=== PATIENT | female | born 1970 | race Caucasian/White ===

== ENCOUNTER → 2016-11-13 | Outpatient (CLI) | payer OTHER ==
[~2016-11-13] MED LIST: ACET500C PO; ANUS2.5C2 EXT; DOCU10ELUD FT; IBUP80TA FT; IBUP80TA PO; MOM30SS FT; PERCOCET PO; PRENTAB8 PO
[2016-11-13 17:56] LABS: BASO % 0.5 % (0.0-1.0); EOS # 0.1 K/mm3 (0.0-0.50); LARGE UNSTAINED CELL # 0.1 K/mm3 (0.0-0.4); LARGE UNSTAINED CELL % 1.5 % (0.0-4.0); MEAN CORPUSCULAR HGB CONC 33.5 g/dl (32.0-36.5); MEAN CORPUSCULAR VOLUME 92.7 fl (80.0-96.0); MONO # 0.4 K/mm3 (0.0-0.8); MONO % 4.7 % (0.0-5.0); NEUTROPHILS # 6.6 K/mm3 (1.8-7.7); NEUTROPHILS % 71.3 % (36.0-66.0); PLATELET COUNT, AUTOMATED 208 k/mm3 (150-450); WHITE BLOOD COUNT 9.3 K/mm3 (4.0-10.0)
[2016-11-15 12:53] LABS: HBsAg Prenatal NEGATIVE (NEGATIVE)
== END ==
LOC: M LAB 15:14
PROVIDERS: ATTEND Specialist
DX: Z34.81 Encounter for supervision of other normal pregnancy, first trimester (principal)

== ENCOUNTER 2016-12-05 10:47 | Emergency (ER) | payer OTHER ==
[~2016-12-05] VITALS: Ht 160 cm; Wt 67.3 kg
[2016-12-05] MEDS ORDERED: NS 1,000 ML IV ONE (11:45)
[2016-12-05 12:12] LABS: BASO % 0.3 % (0.0-1.0); EOS # 0.2 K/mm3 (0.0-0.50); LARGE UNSTAINED CELL # 0.1 K/mm3 (0.0-0.4); LARGE UNSTAINED CELL % 0.6 % (0.0-4.0); LYMPH # 1.8 K/mm3 (1.5-4.5); LYMPH % 11.7 % (24.0-44.0); MEAN CORPUSCULAR HEMOGLOBIN 31.8 pg (27.0-33.0); MEAN CORPUSCULAR HGB CONC 34.8 g/dl (32.0-36.5); MEAN CORPUSCULAR VOLUME 91.4 fl (80.0-96.0); MONO # 0.5 K/mm3 (0.0-0.8); MONO % 2.9 % (0.0-5.0); NEUTROPHILS % 83.4 % (36.0-66.0); PLATELET COUNT, AUTOMATED 224 k/mm3 (150-450); RED CELL DISTRIBUTION WIDTH 12.7 % (11.5-14.5); WHITE BLOOD COUNT 15.6 K/mm3 (4.0-10.0)
[2016-12-05 12:51] LABS: ALBUMIN 4.2 GM/DL (3.2-5.2); ALBUMIN/GLOBULIN RATIO 1.27 (1.00-1.93); ALKALINE PHOSPHATASE 34 U/L (45-117); ALT/SGPT 29 U/L (12-78); ANION GAP 5 MEQ/L (8-16); AST/SGOT 16 U/L (15-37); BILIRUBIN,DIRECT 0.1 MG/DL (0.0-0.2); BILIRUBIN,TOTAL 0.5 MG/DL (0.2-1.0); BLOOD UREA NITROGEN 9 MG/DL (7-18); CALCIUM LEVEL 9.2 MG/DL (8.5-10.1); CARBON DIOXIDE LEVEL 28 MEQ/L (21-32); CHLORIDE LEVEL 106 MEQ/L (98-107); CREATININE FOR GFR 0.65 MG/DL (0.55-1.02); GLOMERULAR FILTRATION RATE > 60.0 (>58); GLUCOSE, FASTING 88 MG/DL (70-105); POTASSIUM SERUM 3.8 MEQ/L (3.5-5.1); SODIUM LEVEL 139 MEQ/L (136-145); TOTAL PROTEIN 7.5 GM/DL (6.4-8.2)
--- NOTE | 2016-12-05 14:11 | REP ---
FIRST TRIMESTER ULTRASOUND: Real-time sonographic evaluation of the pelvis performed utilizing transabdominal and endovaginal technique. Uterus measures 10.4 x 4.8 x 6.1 cm. Oval irregularly shaped sac-like structure in the endometrial canal measures 4.2 x 1.3 x 1.7 cm with a mean diameter of 24 mm. This would correspond to an estimated gestational age of 7 weeks. There is internal debris, but no well defined yolk sac or pole is seen. Findings probably represent a nonviable , but I cannot exclude ectopic . Suggest correlation the serial quantitaive beta hCG values. Ovaries are normal in size and echotexture, right ovary measuring 2.9 x 2.0 x 2.6 cm and left ovary 2.3 x 1.3 x 2.8 cm. There is no adnexal mass free fluid. Blood flow is seen in each ovary with duplex Doppler evaluation, with no torsion, RI right ovary is 0.63, and left ovary 0.68. Signed by Wan Coyne MD 12/05/2016 05:42 P
[2016-12-05 15:06] VITALS: BP 114/57
== END 2016-12-05 15:08 | disposition home or self-care (01) ==
LOC: M ED 10:47
DX: O20.8 Other hemorrhage in early pregnancy (principal); O34.219 Maternal care for unspecified type scar from previous cesarean delivery; Z87.59 Personal history of other complications of pregnancy, childbirth and the puerperium; O99.331 Smoking (tobacco) complicating pregnancy, first trimester; Z3A.01 Less than 8 weeks gestation of pregnancy

== ENCOUNTER → 2016-12-07 | Outpatient (CLI) | payer OTHER | LOC: M LAB 14:33 | PROVIDERS: ATTEND Advanced Practice Midwife | DX: O20.0 Threatened abortion (principal) ==

== ENCOUNTER → 2017-03-29 | Outpatient (REF) | payer OTHER ==
[2017-03-29 21:43] LABS: CONTROL LINE UCG INT CTR LINE PRESENT; URINE PREG TEST NEGATIVE (NEGATIVE)
== END ==
LOC: M LAB REF 21:27
DX: N91.2 Amenorrhea, unspecified (principal)
CPT/HCPCS: 84703

== ENCOUNTER → 2017-09-24 | Outpatient (CLI) | payer OTHER | LOC: M WUC 14:26 | DX: M54.5 Low back pain (principal) | CPT/HCPCS: 72110 ==

== ENCOUNTER → 2017-10-31 | Outpatient (CLI) | payer OTHER | LOC: M RAD 10:50 | DX: R92.8 Other abnormal and inconclusive findings on diagnostic imaging of breast (principal); Z53.8 Procedure and treatment not carried out for other reasons ==

== ENCOUNTER → 2017-10-31 | Outpatient (CLI) | payer OTHER ==
[2017-10-31 17:27] LABS: HCG, SERUM QUANTITATIVE < 1.0 MIU/ML
== END ==
LOC: M SMT 14:30
DX: N92.6 Irregular menstruation, unspecified (principal)
CPT/HCPCS: 84702

== ENCOUNTER → 2018-01-04 | Outpatient (REF) | payer OTHER ==
[2018-01-04 21:18] LABS: CONTROL LINE UCG INT CTR LINE PRESENT; URINE PREG TEST NEGATIVE (NEGATIVE)
== END ==
LOC: M LAB REF 21:04
DX: N91.2 Amenorrhea, unspecified (principal)

== ENCOUNTER → 2018-01-24 | Outpatient (REF) | payer OTHER ==
[2018-01-24 22:01] LABS: CONTROL LINE UCG INT CTR LINE PRESENT; URINE PREG TEST NEGATIVE (NEGATIVE)
== END ==
LOC: M LAB REF 10:50
DX: Z34.81 Encounter for supervision of other normal pregnancy, first trimester (principal)

== ENCOUNTER → 2018-02-02 | Outpatient (REF) | payer OTHER ==
[2018-02-10 10:16] LABS: HPV LOW VOL RFLX Negative (Negative)
== END ==
LOC: M LAB REF 13:33
DX: Z01.419 Encounter for gynecological examination (general) (routine) without abnormal findings (principal); Z11.51 Encounter for screening for human papillomavirus (HPV); R87.611 Atypical squamous cells cannot exclude high grade squamous intraepithelial lesion on cytologic smear of cervix (ASC-H)
CPT/HCPCS: 88142

== ENCOUNTER → 2018-02-06 | Outpatient (REF) | payer OTHER ==
[2018-02-06 07:15] LABS: HCG, SERUM QUANTITATIVE < 1.0 MIU/ML
== END ==
LOC: M LAB 06:25
DX: N91.2 Amenorrhea, unspecified (principal)

== ENCOUNTER → 2018-02-09 | Outpatient (CLI) | payer OTHER | LOC: M RAD 17:36 | DX: R92.2 Inconclusive mammogram (principal); R92.0 Mammographic microcalcification found on diagnostic imaging of breast | CPT/HCPCS: 77067 ==

== ENCOUNTER → 2018-03-27 | Outpatient (CLI) | payer OTHER ==
--- NOTE | 2018-03-27 16:47 | REP ---
Digital diagnostic bilateral mammography with CAD: History: Screening mammography from February 09, 2018 was BIRADS zero because of groupings of microcalcifications seen in each breast. Diagnostic imaging was recommended. Mammographic findings: Magnified focal spot compression CC, MLO, and true MLO views of each breast are obtained. These confirm the presence of a grouping of polymorphic microcalcifications in each breast. On the right, the grouping is superiorly and just medial to the plane of the nipple at approximately the 1 o'clock position. There is a second grouping of similar but less pronounced of punctate calcifications superiorly and medially. On the left, the micro calcific grouping is medial and inferior at approximately the 8 o'clock position. Findings must be considered suspicious. Impression: BIRADS category four suspicious bilateral breast imaging. Bilateral stereotactic needle biopsy is recommended for the larger cluster on the right and the cluster of microcalcifications on the left. BI-RADS/ACR category 4 mammogram. Suspicious abnormality - biopsy should be considered. Usually requires biopsy. This mammogram was interpreted with the aid of an FDA-approved computer-aided detection system. The patient states she had a clinical breast exam in January 2018. The patient letter being requested is m4 . Electronically Signed by Phani Olmstead MD 03/27/2018 06:57 P
== END ==
LOC: M RAD 14:57
PROVIDERS: ATTEND Advanced Practice Midwife
DX: R92.0 Mammographic microcalcification found on diagnostic imaging of breast (principal)

== ENCOUNTER → 2018-06-26 | Outpatient (CLI) | payer OTHER ==
[~2018-06-26] MED LIST changes: -DOCU10ELUD FT; +DOCU5LIQ FT
[2018-06-30 00:06] LABS: TISSUE TRANSGLUTAMINASE IgA <2 U/mL (0-3)
[2018-06-30 08:25] LABS: ZINC PLASMA 83 ug/dL (56-134)
== END ==
LOC: M LAB 17:01
PROVIDERS: ATTEND Family Medicine
DX: R74.8 Abnormal levels of other serum enzymes (principal)

== ENCOUNTER 2018-09-24 13:19 | Emergency (ER) | payer OTHER ==
[~2018-09-24] VITALS: Ht 160 cm; Wt 60.6 kg
[2018-09-24] MEDS ORDERED: PRENTAB7 (13:27)
[2018-09-24] MEDS ORDERED: [UNRECOGNIZED DRUG - OTHER] (13:27)
[2018-09-24] MEDS ORDERED: RABIES VACCINE HUMAN 2.5 INTERNATIONAL UNITS/ML VIAL (90675) IM ONE (14:00)
[2018-09-24] MEDS ORDERED: RABIES IMMUNE GLOBULIN 1500 INTERNATIONAL UNIT/5ML VIAL (90375) IM ONE (14:00)
[2018-09-24 15:44] VITALS: BP 97/51
== END 2018-09-24 15:45 | disposition home or self-care (01) ==
LOC: M ED 13:19
DX: Z20.3 Contact with and (suspected) exposure to rabies (principal); Z23 Encounter for immunization

== ENCOUNTER 2018-09-27 13:46 | Emergency (ER) | payer OTHER ==
[~2018-09-27] VITALS: Ht 160 cm; Wt 60.0 kg
[~2018-09-27 13:46] MED LIST changes: +PRENTAB7; +[UNRECOGNIZED DRUG - OTHER]
[2018-09-27 13:47] VITALS: BP 121/58
[2018-09-27] MEDS ORDERED: RABIES VACCINE HUMAN 2.5 INTERNATIONAL UNITS/ML VIAL (90675) IM ONE (14:15)
== END 2018-09-27 14:47 | disposition home or self-care (01) ==
LOC: M ED 13:46
DX: Z20.3 Contact with and (suspected) exposure to rabies (principal); Z23 Encounter for immunization

== ENCOUNTER 2018-10-01 13:27 | Emergency (ER) | payer OTHER ==
[~2018-10-01] VITALS: Ht 160 cm; Wt 60.9 kg
[2018-10-01 13:27] VITALS: BP 116/61
[2018-10-01] MEDS ORDERED: RABIES VACCINE HUMAN 2.5 INTERNATIONAL UNITS/ML VIAL (90675) IM ONE (13:45)
== END 2018-10-01 14:20 | disposition home or self-care (01) ==
LOC: M ED 13:27
DX: Z23 Encounter for immunization (principal); Z20.3 Contact with and (suspected) exposure to rabies

== ENCOUNTER 2018-10-08 14:13 | Emergency (ER) | payer OTHER ==
[~2018-10-08] VITALS: Ht 160 cm; Wt 61.8 kg
[2018-10-08 14:14] VITALS: BP 126/59
[2018-10-08] MEDS ORDERED: PRENTAB7 (14:32)
[2018-10-08] MEDS ORDERED: RABIES VACCINE HUMAN 2.5 INTERNATIONAL UNITS/ML VIAL (90675) IM ONE (15:00)
== END 2018-10-08 15:10 | disposition home or self-care (01) ==
LOC: M ED 14:13
DX: Z20.3 Contact with and (suspected) exposure to rabies (principal); Z23 Encounter for immunization

== ENCOUNTER → 2019-02-01 | Outpatient (REF) | payer OTHER ==
[2019-02-03 14:07] LABS: HPV HYBRID CAPTURE II Negative (Negative)
== END ==
LOC: M LAB REF 17:22
PROVIDERS: ATTEND Advanced Practice Midwife
DX: Z12.4 Encounter for screening for malignant neoplasm of cervix (principal)

== ENCOUNTER → 2019-03-18 | Outpatient (CLI) | payer OTHER ==
--- NOTE | 2019-03-18 09:14 | REPMRS ---
Patient History The patient states she had a clinical breast exam in January 2019. Family history of prostate cancer in paternal grandfather, unknown cancer in maternal grandfather. Benign radio exam breast specimen of the left breast, May 21, 2018. Benign radio exam breast specimen of the right breast, May 21, 2018. Benign stereotatic loc for ea lesion of the left breast, May 21, 2018. Benign stereotatic loc for ea lesion of the right breast, May 21, 2018. Digital Mammo Screening Bilat: March 18, 2019 - Exam #: [id number] Bilateral CC and MLO view(s) were taken. Technologist: Laura Gutierrez, Technologist Prior study comparison: March 27, 2018, digital mammo diagnostic bilateral performed at [facility]. February 09, 2018, bilateral digital mammo screening bilat performed at [facility]. FINDINGS: There are scattered fibroglandular densities. There is a needle biopsy marker clip again noted in each breast, one on each side. Previously noted small hematoma in the right breast is no longer apparent. The previously noted calcifications have decreased post biopsy in the right breast. There has been no change in the appearance of the mammogram from the prior studies. There is a mild amount of scattered fibroglandular density which is fairly symmetric. There is no interval development of dominant mass, architectural distortion, or grouped microcalcification suggestive of malignancy. 3-D tomosynthesis shows no additional findings. Assessment: BI-RADS/ACR category 1 mammogram. Negative Mammogram. Recommendation Routine screening mammogram of both breasts in 1 year (for women over age 40). This patient's Lifetime Breast Cancer Risk is estimated at 12.7 %. This mammogram was interpreted with the aid of an FDA-approved computer-aided dectection system. Electronically Signed By: Milton Olmstead MD 03/18/19 0913
== END ==
LOC: M RAD 07:56
PROVIDERS: ATTEND Advanced Practice Midwife
DX: Z12.31 Encounter for screening mammogram for malignant neoplasm of breast (principal)

== ENCOUNTER → 2019-11-03 | Outpatient (REF) | payer OTHER, MEDICAID ==
[~2019-11-03] MED LIST changes: +FLUO20CA22; +MULTCAP PO; +OMEP40CA97 PO; +SUCR1TA PO
[2019-11-03 14:22] LABS: HEMATOCRIT 44.6 % (36.0-47.0); MEAN CORPUSCULAR HGB CONC 31.4 g/dl (32.0-36.5); MEAN CORPUSCULAR VOLUME 95.5 fl (80.0-96.0); PLATELET COUNT, AUTOMATED 251 10^3/uL (150-450); RED BLOOD COUNT 4.67 10^6/uL (4.00-5.40); WHITE BLOOD COUNT 9.4 10^3/uL (4.0-10.0)
[2019-11-03 14:57] LABS: BLOOD UREA NITROGEN 12 MG/DL (7-18); CALCIUM LEVEL 9.7 MG/DL (8.5-10.1); CARBON DIOXIDE LEVEL 28 MEQ/L (21-32); CHLORIDE LEVEL 102 MEQ/L (98-107); CREATININE FOR GFR 0.66 MG/DL (0.55-1.30); FOLLICLE STIMULATING HORMONE 9.8 mIU/mL; GLOMERULAR FILTRATION RATE > 60.0 (>58); GLUCOSE, FASTING 89 MG/DL (70-100); LUTEINIZING HORMONE 25.9 mIU/mL; SODIUM LEVEL 137 MEQ/L (136-145)
== END ==
LOC: M LAB REF 12:24 → M SMT 12:24
PROVIDERS: ATTEND Specialist
DX: N92.6 Irregular menstruation, unspecified (principal)

== ENCOUNTER 2019-11-22 14:56 | Emergency (ER) | payer MEDICAID, OTHER ==
[~2019-11-22] VITALS: Ht 160 cm; Wt 70.1 kg
[~2019-11-22 14:56] MED LIST changes: -FLUO20CA22; -MULTCAP PO; -OMEP40CA97 PO; -SUCR1TA PO
[2019-11-22] MEDS ORDERED: MULTCAP PO (15:09)
[2019-11-22] MEDS ORDERED: FLUO20CA22 (15:09)
[2019-11-22 15:36] LABS: BASO % 0.5 % (0.0-1.0); EOS # 0.2 10^3/uL (0.0-0.5); EOS % 1.9 % (0.0-3.0); HEMATOCRIT 39.1 % (36.0-47.0); HEMOGLOBIN 12.6 g/dl (12.0-15.5); LYMPH # 2.1 10^3/uL (1.5-5.0); LYMPH % 26.9 % (24.0-44.0); MEAN CORPUSCULAR HGB CONC 32.2 g/dl (32.0-36.5); MEAN CORPUSCULAR VOLUME 93.1 fl (80.0-96.0); MONO # 0.6 10^3/uL (0.0-0.8); NEUTROPHILS % 63.6 % (36.0-66.0); PLATELET COUNT, AUTOMATED 200 10^3/uL (150-450); WHITE BLOOD COUNT 7.8 10^3/uL (4.0-10.0)
[2019-11-22 15:46] LABS: INR 1.05; PROTHROMBIN TIME 13.9 SECONDS (11.8-14.0)
[2019-11-22 15:47] LABS: PARTIAL THROMBOPLASTIN TIME 25.8 SECONDS (25.0-38.4)
[2019-11-22 16:03] LABS: ALBUMIN 3.7 GM/DL (3.2-5.2); ALT/SGPT 33 U/L (12-78); BILIRUBIN,DIRECT 0.1 MG/DL (0.0-0.2); BILIRUBIN,TOTAL 0.4 MG/DL (0.2-1.0); BLOOD UREA NITROGEN 12 MG/DL (7-18); CALCIUM LEVEL 8.9 MG/DL (8.5-10.1); CARBON DIOXIDE LEVEL 26 MEQ/L (21-32); CHLORIDE LEVEL 109 MEQ/L (98-107); CK-MB VALUE MASS 2.7 NG/ML (<3.6); CPK CREATINE PHOSPHOKINASE 149 U/L (26-192); CREATININE FOR GFR 0.75 MG/DL (0.55-1.30); D-DIMER QUANT 363.43 ng/ml (<500); FREE T4 0.76 NG/DL (0.76-1.46); GLOMERULAR FILTRATION RATE > 60.0 (>58); GLUCOSE, FASTING 99 MG/DL (70-100); LIPASE 72 U/L (73-393); MB/CK RELATIVE INDEX 1.81 (< OR =4); POTASSIUM SERUM 3.6 MEQ/L (3.5-5.1); SODIUM LEVEL 141 MEQ/L (136-145); TOTAL PROTEIN 6.8 GM/DL (6.4-8.2); TROPONIN I < 0.02 NG/ML (< 0.10)
[2019-11-22 16:06] LABS: HCG, SERUM QUALITATIVE NEGATIVE (NEGATIVE)
[2019-11-22] MEDS ORDERED: OMEP40CA97 PO (16:49)
[2019-11-22] MEDS ORDERED: SUCR1TA PO (16:49)
[2019-11-22] MEDS ORDERED: SUCRALFATE 1 GM TAB PO ONE (17:00)
[2019-11-22 17:35] VITALS: BP 144/89
--- NOTE | 2019-11-29 10:48 | ECGEPIP ---
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
--- NOTE | 2019-12-01 11:35 | REP ---
PORTABLE CHEST X-RAY CLINICAL: Chest pain. FINDINGS: Mediastinal and cardiac silhouette normal. Lung ortiz clear. No acute consolidation, effusion, or pneumothorax. Skeletal structures are intact. IMPRESSION: Normal portable chest x-ray. No acute cardiopulmonary process or focal consolidation. MTDD
== END 2019-11-22 17:35 | disposition home or self-care (01) ==
LOC: M ED 14:56
DX: K21.9 Gastro-esophageal reflux disease without esophagitis (principal); F17.200 Nicotine dependence, unspecified, uncomplicated; Z79.899 Other long term (current) drug therapy

== ENCOUNTER → 2019-12-23 | Outpatient (REF) | payer OTHER, MEDICAID ==
[~2019-12-23] MED LIST changes: +FLUO20CA22; +MULTCAP PO; +OMEP40CA97 PO; +SUCR1TA PO
[2019-12-23 16:39] LABS: APPEARANCE, URINE HAZY (CLEAR); BACTERIA, URINE AUTO NEGATIVE (NEGATIVE); BILIRUBIN, URINE AUTO NEGATIVE (NEGATIVE); BLOOD, URINE BLOOD NEGATIVE (NEGATIVE); COLOR, URINE YELLOW (YELLOW); GLUCOSE, URINE (UA) AUTO NEGATIVE (NEGATIVE); KETONE, URINE AUTO NEGATIVE (NEGATIVE); LEUKOCYTE ESTERASE, URINE AUTO NEGATIVE (NEGATIVE); MUCUS, URINE SMALL (NEGATIVE); NITRITE, URINE AUTO NEGATIVE (NEGATIVE); PROTEIN, URINE AUTO NEGATIVE (NEGATIVE); RBC, URINE AUTO 0 /HPF (0-3); SPECIFIC GRAVITY URINE AUTO 1.004 (1.002-1.035); SQUAMOUS EPITHELIAL CELL UR AU 1 /HPF (0-6); UROBILINOGEN, URINE AUTO 0.2 mg/dL (0.0-2.0); WBC, URINE AUTO 0 /HPF (0-3)
== END ==
LOC: M LAB REF 16:12
PROVIDERS: ATTEND Physician Assistant
DX: N39.0 Urinary tract infection, site not specified (principal)

== ENCOUNTER → 2020-03-03 | Outpatient (REF) | payer OTHER, MEDICAID ==
[2020-03-03 19:57] LABS: APPEARANCE, URINE CLEAR (CLEAR); BACTERIA, URINE AUTO NEGATIVE (NEGATIVE); BILIRUBIN, URINE AUTO NEGATIVE (NEGATIVE); BLOOD, URINE BLOOD 1+ (NEGATIVE); COLOR, URINE YELLOW (YELLOW); GLUCOSE, URINE (UA) AUTO NEGATIVE (NEGATIVE); KETONE, URINE AUTO NEGATIVE (NEGATIVE); LEUKOCYTE ESTERASE, URINE AUTO NEGATIVE (NEGATIVE); NITRITE, URINE AUTO NEGATIVE (NEGATIVE); PROTEIN, URINE AUTO NEGATIVE (NEGATIVE); RBC, URINE AUTO 2 /HPF (0-3); SQUAMOUS EPITHELIAL CELL UR AU 0 /HPF (0-6); UROBILINOGEN, URINE AUTO 0.2 mg/dL (0.0-2.0); WBC, URINE AUTO 1 /HPF (0-3)
== END ==
LOC: M LAB REF 19:21
PROVIDERS: ATTEND Physician Assistant Medical
DX: N39.0 Urinary tract infection, site not specified (principal)

== ENCOUNTER 2020-03-14 17:41 | Emergency (ER) | payer MEDICAID, OTHER ==
[~2020-03-14] VITALS: Ht 160 cm; Wt 75.6 kg
[2020-03-14 17:45] VITALS: BP 102/57
[2020-03-14 19:48] VITALS: O2SAT 98
== END 2020-03-14 19:52 | disposition home or self-care (01) ==
LOC: M ED 17:41
DX: Z20.828 Contact with and (suspected) exposure to other viral communicable diseases (principal); R19.7 Diarrhea, unspecified
CPT/HCPCS: 99284; U0003

== ENCOUNTER 2020-03-21 18:11 | Emergency (ER) | payer MEDICAID, OTHER ==
[~2020-03-21] VITALS: Ht 157.5 cm; Wt 165.0 kg
[2020-03-21 20:46] VITALS: BP 129/69
[2020-03-21] MEDS ORDERED: DICYCLOMINE 10 MG CAP PO ONE (22:30)
[2020-03-21 22:54] LABS: BASO # 0.1 10^3/uL (0.0-0.2); BASO % 0.7 % (0.0-1.0); EOS # 0.1 10^3/uL (0.0-0.5); EOS % 1.3 % (0.0-3.0); HEMOGLOBIN 13.5 g/dl (12.0-15.5); LYMPH # 2.3 10^3/uL (1.5-5.0); LYMPH % 28.3 % (24.0-44.0); MEAN CORPUSCULAR HEMOGLOBIN 29.1 pg (27.0-33.0); MEAN CORPUSCULAR HGB CONC 30.7 g/dl (32.0-36.5); MEAN CORPUSCULAR VOLUME 94.8 fl (80.0-96.0); MONO # 0.5 10^3/uL (0.0-0.8); MONO % 6.5 % (0.0-5.0); NEUTROPHILS # 5.2 10^3/uL (1.5-8.5); NEUTROPHILS % 62.8 % (36.0-66.0); PLATELET COUNT, AUTOMATED 210 10^3/uL (150-450); RED BLOOD COUNT 4.64 10^6/uL (4.00-5.40); WHITE BLOOD COUNT 8.3 10^3/uL (4.0-10.0)
[2020-03-21 23:20] LABS: ALBUMIN 4.4 GM/DL (3.2-5.2); BILIRUBIN,DIRECT 0.1 MG/DL (0.0-0.2); BILIRUBIN,TOTAL 0.4 MG/DL (0.2-1.0); MAGNESIUM LEVEL 2.4 MG/DL (1.8-2.4); TOTAL PROTEIN 7.8 GM/DL (6.4-8.2)
--- NOTE | 2020-03-22 00:08 | REPVR ---
PROCEDURE INFORMATION: Exam: XR Complete Acute Abdomen Series Exam date and time: 03/21/2020 11:32 PM Age: 49 years old Clinical indication: Other: Bloating; Additional info: Abd bloating TECHNIQUE: Imaging protocol: XR complete acute abdomen series, including 2 or more views of the abdomen and a single view chest. COMPARISON: RI PORTABLE CHEST X-RAY 10/23/2019 8:44 PM FINDINGS: No evidence of small bowel obstruction. No pneumoperitoneum. No concerning calcifications. Round pelvic calcifications consistent with phleboliths are present. Lungs are normally inflated. Heart and mediastinum are normal. No concerning focal lung abnormality. No pleural effusion or pneumothorax. Imaged skeletal structures are unremarkable. IMPRESSION: No acute intra-abdominal or intrathoracic process. Electronically signed by: Jb Clemens On 03/22/2020 00:08:25 AM
[2020-03-22] MEDS ORDERED: DICY10CA13 PO (00:41)
[2020-03-22 01:05] LABS: FREE THYROXINE INDEX 2.8 % (1.3-4.8); THYROID STIMULATING HORMONE 2.73 uIU/ML (0.358-3.740); THYROXINE (T4) 8.6 UG/DL (4.5-12.0)
== END 2020-03-22 00:54 | disposition home or self-care (01) ==
LOC: M ED 18:11
DX: R14.0 Abdominal distension (gaseous) (principal); R20.2 Paresthesia of skin; Z79.899 Other long term (current) drug therapy

== ENCOUNTER → 2020-04-07 | Outpatient (CLI) | payer OTHER, MEDICAID ==
[~2020-04-07] MED LIST changes: +DICY10CA13 PO
--- NOTE | 2020-04-07 16:18 | REPMRS ---
Patient History The patient states she had a clinical breast exam in 03/2020 Family history of prostate cancer in paternal grandfather, unknown cancer in maternal grandfather. Benign radio exam breast specimen of the left breast, May 21, 2018. Benign radio exam breast specimen of the right breast, May 21, 2018. Benign stereotatic loc for ea lesion of the left breast, May 21, 2018. Benign stereotatic loc for ea lesion of the right breast, May 21, 2018. 3D TOMOSYNTHESIS WAS PERFORMED. The [facility] lifetime risk for breast cancer is 12.5%. Volpara breast density a. Digital Woman Screen Mammo: April 07, 2020 - Exam #: [id number] Bilateral CC and MLO view(s) were taken. Technologist: Gabriela Giordano, Technologist Prior study comparison: March 18, 2019, bilateral digital mammo screening bilat, performed at [facility]. March 27, 2018, digital mammo diagnostic bilateral, performed at [facility]. FINDINGS: There are scattered fibroglandular densities. There has been no change in the appearance of the mammogram from the prior studies. There is a mild amount of residual fibroglandular tissue which is fairly symmetric. There is no interval development of dominant mass, architectural distortion, or clustered microcalcification suggestive of malignancy. Assessment: BI-RADS/ACR category 1 mammogram. Negative Mammogram. Recommendation Routine screening mammogram in 1 year (for women over age 40). This mammogram was interpreted with the aid of an FDA-approved computer-aided dectection system. Electronically Signed By: Wan Coyne MD 04/07/20 [id number]
== END ==
LOC: M WHC 14:10
PROVIDERS: ATTEND Advanced Practice Midwife
DX: Z12.31 Encounter for screening mammogram for malignant neoplasm of breast (principal)

== ENCOUNTER → 2020-04-07 | Outpatient (REF) | payer OTHER, MEDICAID | LOC: M SFHCWAGY 17:37 | PROVIDERS: ATTEND Advanced Practice Midwife | DX: Z12.4 Encounter for screening for malignant neoplasm of cervix (principal) ==

== ENCOUNTER → 2020-04-26 | Outpatient (REF) | payer OTHER, MEDICAID | LOC: M SFHCWAGY 12:48 | PROVIDERS: ATTEND Obstetrics & Gynecology | DX: R87.620 Atypical squamous cells of undetermined significance on cytologic smear of vagina (ASC-US) (principal) ==

== ENCOUNTER → 2020-05-31 | Outpatient (CLI) | payer OTHER | LOC: M PLARAD 07:52 | PROVIDERS: ATTEND Nurse Practitioner Family | DX: Z53.29 Procedure and treatment not carried out because of patient's decision for other reasons (principal) ==

== ENCOUNTER → 2020-06-16 | Outpatient (CLI) | payer OTHER | LOC: M RAD 18:16 | PROVIDERS: ATTEND Nurse Practitioner Family | DX: Z53.9 Procedure and treatment not carried out, unspecified reason (principal); M54.16 Radiculopathy, lumbar region ==

== ENCOUNTER → 2020-06-26 | Outpatient (REF) | payer OTHER ==
[2020-06-26 18:52] LABS: APPEARANCE, URINE CLEAR (CLEAR); BACTERIA, URINE AUTO NEGATIVE (NEGATIVE); BILIRUBIN, URINE AUTO NEGATIVE (NEGATIVE); BLOOD, URINE BLOOD NEGATIVE (NEGATIVE); COLOR, URINE YELLOW (YELLOW); GLUCOSE, URINE (UA) AUTO NEGATIVE (NEGATIVE); KETONE, URINE AUTO NEGATIVE (NEGATIVE); LEUKOCYTE ESTERASE, URINE AUTO NEGATIVE (NEGATIVE); MUCUS, URINE SMALL (NEGATIVE); NITRITE, URINE AUTO NEGATIVE (NEGATIVE); PROTEIN, URINE AUTO NEGATIVE (NEGATIVE); RBC, URINE AUTO 1 /HPF (0-3); SQUAMOUS EPITHELIAL CELL UR AU 1 /HPF (0-6); UROBILINOGEN, URINE AUTO 0.2 mg/dL (0.0-2.0); WBC, URINE AUTO 1 /HPF (0-3)
== END ==
LOC: M LAB REF 17:14
PROVIDERS: ATTEND Physician Assistant Medical
DX: R35.0 Frequency of micturition (principal)

== ENCOUNTER → 2020-07-14 | Outpatient (REF) | payer OTHER, MEDICAID ==
--- NOTE | 2020-07-14 15:37 | REP ---
INDICATION: DOD. COMPARISON: None TECHNIQUE: Four views FINDINGS: There is no acute fracture, dislocation, subluxation, or joint effusion. IMPRESSION: Within normal limits <Electronically signed by Palomo Fernández > 07/14/20 1534
--- NOTE | 2020-07-14 15:37 | REP ---
INDICATION: DOD. COMPARISON: None. TECHNIQUE: AP and lateral views FINDINGS: No acute fracture or destructive osseous lesion. IMPRESSION: Negative exam <Electronically signed by Palomo Fernández > 07/14/20 1536
--- NOTE | 2020-07-14 15:38 | REP ---
INDICATION: DOD. TECHNIQUE: AP and lateral views FINDINGS: Vertebral body height and alignment is within normal limits. The disc spaces are symmetric and relatively well maintained with minimal posterior disc space narrowing seen L3-4 through L5-S1 inclusive status quo. Mild degenerative facet joint changes are suspected L4-5 L5-S1 bilaterally status quo. IMPRESSION: Minimal chronic changes as described above. <Electronically signed by Palomo Fernández > 07/14/20 [id number]
== END ==
LOC: M RAD 15:05
PROVIDERS: ATTEND Internal Medicine
DX: M51.36 Other intervertebral disc degeneration, lumbar region (principal); M51.37 Other intervertebral disc degeneration, lumbosacral region

== ENCOUNTER → 2020-07-15 | Outpatient (REF) | payer OTHER, MEDICAID | LOC: M LAB REF 19:43 | PROVIDERS: ATTEND Physician Assistant Medical | DX: J02.9 Acute pharyngitis, unspecified (principal) ==

== ENCOUNTER 2020-08-18 22:38 | Emergency (ER) | payer OTHER, MEDICAID ==
[~2020-08-18] VITALS: Ht 157.5 cm; Wt 80.3 kg
[2020-08-18] MEDS ORDERED: VITA200028 PO (22:55)
[2020-08-18] MEDS ORDERED: OMEP-218 PO (22:55)
[2020-08-18 23:18] LABS: BASO % 0.5 % (0.0-1.0); EOS # 0.2 10^3/uL (0.0-0.5); EOS % 1.8 % (0.0-3.0); HEMATOCRIT 38.2 % (36.0-47.0); HEMOGLOBIN 12.5 g/dl (12.0-15.5); LYMPH # 2.7 10^3/uL (1.5-5.0); LYMPH % 31.2 % (24.0-44.0); MEAN CORPUSCULAR HEMOGLOBIN 29.5 pg (27.0-33.0); MEAN CORPUSCULAR HGB CONC 32.7 g/dl (32.0-36.5); MEAN CORPUSCULAR VOLUME 90.1 fl (80.0-96.0); MONO # 0.6 10^3/uL (0.0-0.8); MONO % 7.2 % (2.0-8.0); NEUTROPHILS # 5.1 10^3/uL (1.5-8.5); PLATELET COUNT, AUTOMATED 223 10^3/uL (150-450); RED BLOOD COUNT 4.24 10^6/uL (4.00-5.40); WHITE BLOOD COUNT 8.7 10^3/uL (4.0-10.0)
[2020-08-18 23:38] LABS: BLOOD UREA NITROGEN 12 MG/DL (7-18); CALCIUM LEVEL 9.1 MG/DL (8.5-10.1); CARBON DIOXIDE LEVEL 24 MEQ/L (21-32); CHLORIDE LEVEL 106 MEQ/L (98-107); CREATININE FOR GFR 0.74 MG/DL (0.55-1.30); GLOMERULAR FILTRATION RATE > 60.0 (>58); GLUCOSE, FASTING 148 MG/DL (70-100); POTASSIUM SERUM 3.6 MEQ/L (3.5-5.1); SODIUM LEVEL 139 MEQ/L (136-145)
--- NOTE | 2020-08-19 00:03 | REPVR ---
PROCEDURE INFORMATION: Exam: XR Chest Exam date and time: 08/18/2020 10:46 PM Age: 49 years old Clinical indication: Other: Chest pain TECHNIQUE: Imaging protocol: XR of the chest. Views: 1 view. COMPARISON: CR Abdomen,Flat Upright,PA CHEST 03/21/2020 11:22 PM FINDINGS: Lungs: Degree of lung inflation is normal. No evidence of pulmonary edema. No focal consolidation or parenchymal lung mass. Pleural spaces: No pleural effusion or pneumothorax. Heart/Mediastinum: Cardiac silhouette appears normal. No adenopathy or hilar mass. 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 IMPRESSION: No acute or focal cardiopulmonary process. Electronically signed by: Jb Clemens On 08/19/2020 00:02:52 AM
[2020-08-19 00:37] LABS: MAGNESIUM LEVEL 1.8 MG/DL (1.8-2.4)
[2020-08-19 02:31] VITALS: BP 116/59
--- NOTE | 2020-08-19 07:44 | ECGEPIP ---
[facility] - ED Test Date: 2020-08-18 Pat Name: ADAN MEDEL Department: Room: - Gender: Female Taxi Cab Driver: SIMON SPENCERB: 1970 Requested By: JELLY Bowie Order Number: [id number] Reading MD: Haseeb Emerson Measurements Intervals [place] Rate: 71 P: 65 [place]: 160 QRS: 48 QRSD: 86 T: 54 QT: 388 QTc: 421 Interpretive Statements Normal sinus rhythm POOR R WAVE PROGRESSION SIMILAR TO 11/22/19 Electronically Signed on 08-19-2020 7:44:24 EDT by Haseeb Emerson
== END 2020-08-19 02:55 | disposition home or self-care (01) ==
LOC: M ED 22:38
DX: R00.2 Palpitations (principal); R53.83 Other fatigue; F32.9 Major depressive disorder, single episode, unspecified; F17.200 Nicotine dependence, unspecified, uncomplicated; Z79.899 Other long term (current) drug therapy

== ENCOUNTER → 2020-09-07 | Outpatient (REF) | payer OTHER, MEDICAID ==
[~2020-09-07] MED LIST changes: +OMEP-218 PO; +OMEP40CA4 PO; -OMEP40CA97 PO; +VITA200028 PO
== END ==
LOC: M SFHCWAGY 16:56
PROVIDERS: ATTEND Nurse Practitioner Women's Health
DX: Z11.3 Encounter for screening for infections with a predominantly sexual mode of transmission (principal)